=== PATIENT | female | born 1945 | race Caucasian/White ===

== ENCOUNTER 2022-03-03 15:06 | Outpatient (CLI) | payer MEDICARE, OTHER, SELFPAY ==
[2022-03-03 21:31] LABS: Albumin* 4.6 g/dL (3.3-5.0)
[2022-03-03 21:34] LABS: Alanine Aminotransferase* 49 U/L (4-35); Alkaline Phosphatase* 114 U/L (40-150); Aspartate Amino Transferase* 45 U/L (12-35); Bilirubin Direct* 0.2 mg/dL (0.0-0.5); Bilirubin Total* 0.3 mg/dL (0.1-1.5); Lipase* 215 U/L (23-300); Total Protein* 7.4 g/dL (6.0-8.3)
== END 2022-03-03 15:07 | disposition home or self-care (01) ==
PROVIDERS: PCP Physician Assistant Medical; Visit Provider Physician Assistant Medical
DX: E03.9 Hypothyroidism, unspecified (principal); R74.8 Abnormal levels of other serum enzymes; R53.83 Other fatigue; E11.9 Type 2 diabetes mellitus without complications
CPT/HCPCS: 80076; 83690; 84443

== ENCOUNTER 2022-04-01 08:39 | Outpatient (CLI) | payer MEDICARE, OTHER, SELFPAY ==
[2022-04-01 14:04] LABS: Cholesterol* 163 mg/dL (90-199); Triglycerides* 183 mg/dL (40-149)
[2022-04-01 14:05] LABS: HDL Cholesterol* 45 mg/dL (>=50); LDL Cholesterol Calculated 81 mg/dL (<100)
[2022-04-01 14:20] LABS: Iron* 82 ug/dL (37-170)
[2022-04-01 14:24] LABS: HIV 1/2/P24 Combo Screen* Negative (Negative)
[2022-04-01 14:30] LABS: Percent Iron Saturation 25 % (20-50); Total Iron Binding Capacity 332 ug/dL (265-497)
[2022-04-01 14:34] LABS: Hepatitis C Virus Antibody* Negative (Negative)
== END 2022-04-01 08:40 | disposition home or self-care (01) ==
PROVIDERS: PCP Physician Assistant Medical; Visit Provider Physician Assistant Medical
DX: Z00.00 Encounter for general adult medical examination without abnormal findings (principal); R53.83 Other fatigue; E03.9 Hypothyroidism, unspecified; E66.9 Obesity, unspecified; E78.5 Hyperlipidemia, unspecified
CPT/HCPCS: 80061; 82310; 83540; 83550; 83970; 86703; 86803

== ENCOUNTER 2022-04-22 12:49 | Outpatient (CLI) | payer MEDICARE, OTHER, SELFPAY ==
--- NOTE | 2022-04-22 13:00 | CRLHL7_ITS ---
For Patients: As a result of the Cures Act, medical imaging exams and procedure reports are released immediately into your electronic medical record. You may view this report before your referring provider. If you have questions, please contact your health care provider. INDICATION: EVAL FOR THYROID NODULE OR PARATHYROID ADENOMA COMPARISON: none TECHNIQUE: Montes scale and color Doppler images were acquired of the thyroid gland. FINDINGS: The thyroid gland demonstrates heterogeneous echogenicity and has a smooth outer contour. The right lobe measures 3.5 x 0.9 x 1.3 cm and the left lobe measures 4.0 x 1.0 x 0.9 cm in size. Solid circumscribed hypoechoic nodule upper pole left thyroid lobe measures 8 x 4 x 7 millimeters. As this is less than 1 cm, this does not require follow-up. The color Doppler images demonstrate normal vascularity. There is no evidence of cervical lymphadenopathy or parathyroid mass. IMPRESSION: No suspicious findings. Dictated by Vick Gaspar MD @ 04/22/2022 2:29:45 PM (Electronically Signed)
--- NOTE | 2022-04-22 14:00 | CRLHL7_ITS ---
For Patients: As a result of the Century Cures Act, medical imaging exams and procedure reports are released immediately into your electronic medical record. You may view this report before your referring provider. If you have questions, please contact your health care provider. DXA BONE MINERAL DENSITY STUDY Current height (in): 63. Weight (lb): 205. Menopause age: 49. Ethnicity: White. 1. Have you had a previous hip or vertebral fracture? No. 2. Have you had any fractures during your adult life which did not result from significant trauma (e.g., auto accident)? Yes. 3. Did either of your parents have a hip fracture? No. 4. Do you smoke? No. 5. Have you ever taken Glucocorticoids? No. 6. Do you have rheumatoid arthritis? No. 7. Do you have secondary osteoporosis? No. 8. Do you drink 3 or more alcoholic drinks per day? No. 9. Are you being treated for osteoporosis? No. 10. Have you ever taken any of the following medications: Actonel, Evista, Fosamax, Miacalcin, Reclast, Boniva, Forteo, HRT (i.e. estrogen/hormone therapy), Protelos, Prolia, Vitamin D, Calcium, other ??? please specify. ANSWER: Yes, vitamin D, calcium. 11. Do you have any of the following medical conditions: Anorexia or bulimia, asthma or emphysema, end stage renal disease, hyperparathyroidism, any seizure disorders, cancer, inflammatory bowel diseases, hysterectomy, other ??? please specify. ANSWER: Yes, hysterectomy. 12. What was your maximum height (inches)? 62. 13. Do you perform weight bearing exercise regularly? Yes. 14. Do you regularly consume dairy products? Yes. . 15. Do you drink caffeinated beverages? Yes. 16. At what age did your period start? 14. 17. Are you premenopausal? No. 18. How many full term pregnancies have you had? 4. 19. Have you ever missed your period for more than 6 months in a row (not including or menopause)? No. TECHNIQUE: Bone mineral density study was performed using the [employer]. FINDINGS: The results of the study expressed as bone mineral density (BMD) are as follows: Lumbar spine L1 to L4: BMD: 0.829 g/cm2. T-score: -2.0. Z-score: 0.5. Neck Left: BMD: 0.617 g/cm2. T-score: -2.1. Z-score: 0.0. Right: BMD: 0.539 g/cm2. T-score: -2.8. Z-score: -0.7. Total Left: BMD: 0.724 g/cm2. T-score: -1.8. Z-score: 0.0. Right: BMD: 0.654 g/cm2. T-score: -2.4. Z-score: -0.5. IMPRESSION: Osteoporosis. *Comparison exams done prior to 01/2020 were performed on different unit, [employer]. COMPARISON: Compared with scan of 04/03/2020, the bone mineral density has increased by 4.1 percent at the spine and increased by 2.9 percent at the hip. Vick Gaspar M.D. Diagnostic Radiologist [email or web address] JOSE/Dictated by: Vick Gaspar MD @ 04/22/2022 3:38:00 PM (Electronically Signed)
== END 2022-04-22 12:50 | disposition home or self-care (01) ==
PROVIDERS: PCP Physician Assistant Medical; Visit Provider Physician Assistant Medical
DX: E34.9 Endocrine disorder, unspecified (principal); E03.9 Hypothyroidism, unspecified; M81.0 Age-related osteoporosis without current pathological fracture
CPT/HCPCS: 76536; 77080

== ENCOUNTER 2022-05-11 16:15 | Outpatient (RCR) | payer MEDICARE, OTHER, SELFPAY ==
--- NOTE | 2022-04-15 08:38 | PT.OPE ---
PT [place] [facility] Eval [facility] Outpatient Eval Start: 04/14/22 10:13 Freq: Status: Active Protocol: Document 04/14/22 10:21 [facility] [place] (Rec: 04/14/22 10:28 [facility] [place] [id number]) E-signed By Chrissy Bernard PT Physical Therapy Outpatient Evaluation Insurance Information Recert Due Date 07/08/22 Insurance Name Other; See Comments Insurance Information/Comments Medicare advantage blue cross Medical Diagnosis [id number] unspecified fall Treating Diagnosis R26.89 abnormal gait R26.9 unsteadiness of gait, fall M25.521 R elbow pain Referring MD Ariadna Case PA-C Subjective Subjective had a fall 03/16/22 was at [facility] w 6 yo grandson, walking up incline already a little off balance then leaned forward to hear what he said and I just kept falling forward. able to miss him, landed on R forearm (hx R TSA) and R knee. went to urgent care said not broken, but I can't straighten my elbow and it does hurt some but cant use it for reaching, lifting, carrying or even working with my sewing projects. Have had both knees replaced and this winter had R thumb fused due to arthritis. Dont' feel like it was dizziness that made me fall just my center of gravity got too far forward. But I do still have that off balance unsteady feeling hasnt turned into full vertigo. Havent been working out w transportation associate this month bx wanted to heal from the fall and couldnt do the lifting and carrying that is a lot of our work. have stairs to [facility] sewing room ([facility]) w rails both sides can reach simultaneous. Am so afraid of falling fidencio since live alone and am worried about my balance. Pain Comments mod through R gluteal/ piriformis into lowback and down into hip Current Work Status Retired Preferred Name Latanya Precautions Treatment Precautions/Contraindications hypothyroidism, R shoulder TSA , R thumb fusion, B TKA, fibromyalgia, sleep apnea, HTN , OA, allergies - double vision, chronic ( surgery to correct but still doesn't focusright per patient ), Thrombocytosis, Vertigo, Obesity, Osteopenia Therapy Limitations/Systems Review Not Limited Objective Range of Motion CROM flex WNL. ext mod loss with R deviation. rotation R= 68. L=55. SHOULDER R/L: flex 165/150, abduct B 16, ER R=75, L=55, IR B T12 behind back *ELBOW ext lacking 38 degrees, flex lacking 10 degrees trunk flex limited by balance from standing. hip ER 20 degrees. Knee flex/ ext WNL L ankle DF to neutral R hip extension lacking in gait not formally tested. Strength 1 rep MMT strong - 5/5 except adduction of hips seated = 4/5 w tender at knees. step down does have increased valgus and adduction and pronation R. UE not assessed this date. endurance not great, increased fatigue after 6 min walk seated rest for recovery. Palpation tenederness bennie R knee. other areas not assessed this date though typically widespread tenderness w hx dx of fibromyalgia (takes cymbalta) Balance & Gait moderate to marked path deviation without gait aid, trendelenberg with R swing phase, R stance phase demo R pronation even in supported shoe w orthotic no shuffling noted. forward gaze, turning head results in reach for balance. able to adjust speed but never 'fast'. No evidence of festination nor shuffling though does catch toes of R LE x 3 in trial. Stairs w reciprocal gait - trendelenberg with L stance on ascent. tandem stance L forward 25 sec EO, R 9 sec, LOB with eyes closed SLS R= 2 .5 sec, L = 2 sec ( goal of 25 sec) NBOS with head turn LOB posterior Posture standing mild scoliosis with increased anterior pelvic tilt . R genu valgus of 18 degrees, R foot pronation, B flat foot requiring orthotics which she wears consistently. trendelenberg with gait when fatigued, also noted in step downs. Functional Test Performed & Score 5x sit/stand = 12 sec 6 min walk test 1000' (305 m) (recommended for her age 471m) with shortness of breath poss due to mask and allergens Tinetti 20 mod fall risk. Assessment Assessment/Impression Patient is a very pleasant 76 y.o. female well known to this therapist through prior episodes of care. [place] - states she was walking up an incline and already a little off balance when she tried to lean forward to hear what the 6 y.o. was saying. She did fall forward onto R forearm and knee. Went to [facility], had xray and nothing broken but deep bone bruise. She did have help getting back up. She has long hx of recurrent vertigo, fibromyalgia, and OA with R TSA, B TKA, R thumb fusion, B flat feet (orthotics), fibromyalgia and chronic fatigue. . She lives alone in [facility] with basement level to her sewing room ([employer] ) with kids in area. She does also watch her grandkids and likes to attend their activities including outdoor sports venues at times involving uneven ground, hills , loose gravel and other obstacles. She works out weekly with a transportation associate at the gym and was up to deadlifting 50# and press 35# UE. She has been unable to participate in workouts due to ongoing R elbow pain and inability to fully extend it ( she feels she must use her UE for the workout exercises), so have also requested addition of R elbow to this plan of care, order sent to primary for signature if she agrees. Patient presents with gait deviation, multifactoral potentially causative factors (including functional weakness and endurance, comorbidities, pain, vestibular dysfunction and gait impairments) for falling and would benefit from skilled physical therapy to address these limitations and improve gait, balance and overall safety to resume prior level of activity and ability to live independently in own home. Primary Functional Limitations balance, fall ~ 1 month ago, unsteady, R hip/LB pain altering gait, stair imbalance , decreased activity tolerance Plan of Care Rehabilitation Potential Excellent Physical Therapy Goals very motivated and dedicated to remaining independent safely STG meet 2-3 weeks 1) Pt demo I HEP and self care/home mgmt techniques for balance/falls adaptation, safety measures, and home safety improvements including picking up throw rugs, night light or commode, and use of gait aid as appropriate. 2) Pt report no falls in 6 week period. 3) Patient to demonstrate ability to ambulate safely on uneven ground with no or least restrictive gait aid. LTG meet 4-8 weeks 1)Pt demo ability ascend/ descend stairs carrying basket with use of 1 rail x 13 steps no evidence of imbalance for access to basement living level with no evidence of imbalance. 2) Pt demo ability to pass balance testing (SLS, DGI, Fukuda etc) out of high fall risk. 3) Pt demo appropriate gait pattern 500' with no evidence of lack of balance with perturbations internal and external for shopping, community ambulation with least restrictive or no gait aid. 4) Patient to demo ability to safely and confidently negotiate curb with no or least restrictive gait aid. 5) Pt will demo ability to return to walking, yoga and functional strengthening for management of RA, HTN and osteopenia to maximize independence and longevity. Coordination/Communication With Referral Source Treatment Plan/Direct Interventions Electrical Stimulation,Gait Training,Iontophoresis,Joint Mobilization,Manual Therapy, Neuromuscular Re-ed,Self-Care/ Home Management,Therapeutic Activities,Therapeutic Exercises,Ultrasound Frequency/Duration 1x/ week x 12 weeks Patient Will Be Discharged From Therapy Completion of LTG(s),Skills Plateau,Independent w/HEP, Independently Progressing Evaluation Billing Untimed Code Treatment Minutes 40 Complexity Moderate Certification Information Initial Certification Date 04/14/22 Ending Certification Date 07/08/22 Provider Signature Shows Agreement With POC & Medical Necessity Physician Comment/Change Comment or Changes Physician NPI Number #
== END 2022-08-18 13:23 | disposition home or self-care (01) ==
PROVIDERS: PCP Physician Assistant Medical; Visit Provider Physician Assistant Medical
DX: R26.89 Other abnormalities of gait and mobility (principal); Z51.89 Encounter for other specified aftercare
CPT/HCPCS: 97110; 97112; 97140; 97162

== ENCOUNTER 2022-05-17 22:04 | Outpatient (CLI) | payer MEDICARE, OTHER, SELFPAY ==
[2022-05-17 22:45] LABS: TSH With Reflex to FT4* 0.833 uIU/mL (0.270-4.200)
== END 2022-05-17 22:05 | disposition home or self-care (01) ==
PROVIDERS: PCP Physician Assistant Medical; Visit Provider Physician Assistant Medical
DX: E03.9 Hypothyroidism, unspecified (principal)
CPT/HCPCS: 84443

== ENCOUNTER 2022-07-22 13:43 | Outpatient (CLI) | payer MEDICARE, OTHER, SELFPAY ==
[2022-07-22 22:29] LABS: Albumin* 4.7 g/dL (3.3-5.0)
[2022-07-22 22:30] LABS: Chloride* 102 mmol/L (96-114); Potassium* 4.3 mmol/L (3.6-5.1); Sodium* 140 mmol/L (135-149)
[2022-07-22 22:32] LABS: Alkaline Phosphatase* 95 U/L (40-150); Aspartate Amino Transferase* 44 U/L (12-35); Bilirubin Total* 0.5 mg/dL (0.1-1.5); Blood Urea Nitrogen* 17 mg/dL (7-30); Carbon Dioxide* 26 mmol/L (20-32); Estimated Glomerular Filt Rate 59 ml/min; Total Protein* 7.6 g/dL (6.0-8.3)
[2022-07-22 22:33] LABS: Alanine Aminotransferase* 41 U/L (4-35); Calcium* 10.3 mg/dL (8.4-10.6); Glucose* 98 mg/dL (60-115)
[2022-07-25 22:26] LABS: Vitamin D, 1,25-Dihydroxy 43.3 pg/mL (19.9-79.3)
== END 2022-07-22 13:44 | disposition home or self-care (01) ==
PROVIDERS: PCP Physician Assistant Medical; Visit Provider Physician Assistant Medical
DX: E34.9 Endocrine disorder, unspecified (principal); R53.83 Other fatigue; R74.8 Abnormal levels of other serum enzymes; E11.9 Type 2 diabetes mellitus without complications; E03.9 Hypothyroidism, unspecified; I10 Essential (primary) hypertension; E78.5 Hyperlipidemia, unspecified; D50.9 Iron deficiency anemia, unspecified; E66.9 Obesity, unspecified; D75.839 Thrombocytosis, unspecified; R73.09 Other abnormal glucose
CPT/HCPCS: 80053; 82310; 82652; 83970; 84443; 87086; 87186

== ENCOUNTER 2022-08-11 15:10 | Outpatient (CLI) | payer MEDICARE, OTHER, SELFPAY | END 2022-08-11 15:11 | disposition home or self-care (01) | PROVIDERS: PCP Physician Assistant Medical; Visit Provider Physician Assistant Medical | DX: N39.0 Urinary tract infection, site not specified (principal) | CPT/HCPCS: 87086; 87186 ==

== ENCOUNTER 2022-09-08 09:44 | Outpatient (CLI) | payer MEDICARE, OTHER, SELFPAY | END 2022-09-08 09:45 | disposition home or self-care (01) | LOC: LKVREF 09-10 09:08 | PROVIDERS: PCP Physician Assistant Medical; Visit Provider Physician Assistant Medical | DX: R35.0 Frequency of micturition (principal); L98.9 Disorder of the skin and subcutaneous tissue, unspecified | CPT/HCPCS: 87086; 87186 ==

== ENCOUNTER 2022-11-03 13:46 | Outpatient (CLI) | payer MEDICARE, OTHER, SELFPAY | END 2022-11-03 13:47 | disposition home or self-care (01) | LOC: NFLDREF 13:46 | PROVIDERS: PCP Physician Assistant Medical; Visit Provider Obstetrics & Gynecology | DX: R35.0 Frequency of micturition (principal) | CPT/HCPCS: 87086; 87186 ==

== ENCOUNTER 2022-12-01 10:51 | Outpatient (CLI) | payer MEDICARE, OTHER, SELFPAY | END 2022-12-01 10:52 | disposition home or self-care (01) | LOC: LKVREF 10:52 | PROVIDERS: PCP Physician Assistant Medical; Visit Provider Physician Assistant Medical | DX: N39.0 Urinary tract infection, site not specified (principal); N81.6 Rectocele; R33.9 Retention of urine, unspecified; R53.83 Other fatigue | CPT/HCPCS: 80053; 87086; 87186 ==

== ENCOUNTER 2022-12-14 13:29 | Outpatient (CLI) | payer MEDICARE, OTHER, SELFPAY | END 2022-12-14 13:30 | disposition home or self-care (01) | LOC: NFLDREF 12-16 06:20 | PROVIDERS: PCP Physician Assistant Medical; Referring Provider Physician Assistant Medical; Visit Provider Obstetrics & Gynecology | DX: N39.0 Urinary tract infection, site not specified (principal) | CPT/HCPCS: 87086 ==

== ENCOUNTER 2023-04-06 08:42 | Outpatient (CLI) | payer MEDICARE, OTHER, SELFPAY | END 2023-04-06 08:43 | disposition home or self-care (01) | PROVIDERS: PCP Physician Assistant Medical; Visit Provider Physician Assistant Medical | DX: Z00.00 Encounter for general adult medical examination without abnormal findings (principal); R53.83 Other fatigue; E03.9 Hypothyroidism, unspecified; I10 Essential (primary) hypertension; E78.5 Hyperlipidemia, unspecified; E66.9 Obesity, unspecified; R74.8 Abnormal levels of other serum enzymes; E11.9 Type 2 diabetes mellitus without complications; D50.9 Iron deficiency anemia, unspecified; E34.9 Endocrine disorder, unspecified; Z13.21 Encounter for screening for nutritional disorder; M85.80 Other specified disorders of bone density and structure, unspecified site | CPT/HCPCS: 80053; 80061; 82306; 82310; 82607; 83540; 83550; 83970; 84443 ==

== ENCOUNTER 2023-07-11 11:20 | Outpatient (REF) | payer MEDICARE, OTHER, SELFPAY | END 2023-07-11 11:21 | disposition home or self-care (01) | LOC: NFLDREF 11:20 | PROVIDERS: PCP Physician Assistant Medical; Referring Provider Physician Assistant Medical; Visit Provider Physician Assistant Medical | DX: N39.0 Urinary tract infection, site not specified (principal); M79.7 Fibromyalgia; K21.9 Gastro-esophageal reflux disease without esophagitis | CPT/HCPCS: 87086; 87186 ==

== ENCOUNTER 2023-07-27 14:31 | Outpatient (CLI) | payer MEDICARE, OTHER, SELFPAY | END 2023-07-27 14:32 | disposition home or self-care (01) | LOC: NFLDREF 07-29 14:37 | PROVIDERS: PCP Physician Assistant Medical; Referring Provider Physician Assistant Medical; Visit Provider Physician Assistant Medical | DX: N39.0 Urinary tract infection, site not specified (principal) | CPT/HCPCS: 87086 ==

== ENCOUNTER 2023-12-12 13:12 | Outpatient (CLI) | payer MEDICARE, OTHER, SELFPAY | END 2023-12-12 13:13 | disposition home or self-care (01) | PROVIDERS: PCP Physician Assistant Medical; Visit Provider Family Medicine | DX: R53.83 Other fatigue (principal); E03.9 Hypothyroidism, unspecified | CPT/HCPCS: 80048; 84443 ==

== ENCOUNTER 2024-03-26 09:50 | Outpatient (CLI) | payer MEDICARE, OTHER, SELFPAY | END 2024-03-26 09:51 | disposition home or self-care (01) | PROVIDERS: PCP Physician Assistant Medical; Visit Provider Physician Assistant Medical | DX: E03.9 Hypothyroidism, unspecified (principal); I10 Essential (primary) hypertension; E78.5 Hyperlipidemia, unspecified; M19.90 Unspecified osteoarthritis, unspecified site; E11.9 Type 2 diabetes mellitus without complications; Z79.84 Long term (current) use of oral hypoglycemic drugs; Z11.59 Encounter for screening for other viral diseases; Z11.4 Encounter for screening for human immunodeficiency virus [HIV] | CPT/HCPCS: 80053; 80061; 82306; 82550; 83970; 84439; 84481; 86140; 86703; 86803 ==

== ENCOUNTER 2024-04-12 13:36 | Outpatient (CLI) | payer MEDICARE, OTHER, SELFPAY ==
--- NOTE | 2024-04-12 13:30 | CRLHL7_ITS ---
For Patients: As a result of the Century Cures Act, medical imaging exams and procedure reports are released immediately into your electronic medical record. You may view this report before your referring provider. If you have questions, please contact your health care provider. DXA BONE MINERAL DENSITY STUDY Reason for exam: Breast cancer. Screening. Current height (in): 63. Weight (lb): 205. Menopause age: 52. Ethnicity: White. 1. Have you had a previous hip or vertebral fracture? No. 2. Have you had any fractures during your adult life which did not result from significant trauma (e.g., auto accident)? Yes. 3. Did either of your parents have a hip fracture? No. 4. Do you smoke? No. 5. Have you ever taken Glucocorticoids? No. 6. Do you have rheumatoid arthritis? No. 7. Do you have secondary osteoporosis? No. 8. Do you drink 3 or more alcoholic drinks per day? No. 9. Are you being treated for osteoporosis? No. 10. Have you ever taken any of the following medications: Actonel, Evista, Fosamax, Miacalcin, Reclast, Boniva, Forteo, HRT (i.e., estrogen/hormone therapy), Protelos, Prolia, Vitamin D, Calcium, other ??? please specify. ANSWER: Yes, Vitamin D and calcium. 11. Do you have any of the following medical conditions: Anorexia or bulimia, asthma or emphysema, end stage renal disease, hyperparathyroidism, any seizure disorders, cancer, inflammatory bowel diseases, hysterectomy, other ??? please specify. ANSWER: Yes, hysterectomy. 12. What was your maximum height (inches)? 63. 13. Do you perform weight bearing exercise regularly? Yes. 14. Do you regularly consume dairy products? Yes. 15. Do you drink caffeinated beverages? Yes. 16. At what age did your period start? 14. 17. Are you premenopausal? No. 18. How many full-term pregnancies have you had? 4. 19. Have you ever missed your period for more than 6 months in a row (not including or menopause)? No. TECHNIQUE: Bone mineral density study was performed using the [employer]. FINDINGS: The results of the study expressed as bone mineral density (BMD) are as follows: Lumbar spine L1 to L4: BMD: 0.862 g/cm2. T-score: -1.7. Z-score: 0.9 Neck Left: BMD: 0.608 g/cm2. T-score: -2.2. Z-score: 0.0 Right: BMD: 0.560 g/cm2. T-score: -2.6. Z-score: -0.4 Total Left: BMD: 0.765 g/cm2. T-score: -1.5. Z-score: 0.5 Right: BMD: 0.697 g/cm2. T-score: -2.0. Z-score: -0.1 IMPRESSION: Osteoporosis. *Comparison exams done prior to 01/2020 were performed on different unit, [employer]. COMPARISON: Compared with scan of 04/22/2022, the bone mineral density has increased by 3.9 percent at the spine and increased by 6.1 percent at the hip. Compared with scan of 04/03/2020, the bone mineral density has increased by 4.1 percent at the spine and increased by 2.9 percent at the hip. Vick Gaspar M.D. Diagnostic Radiologist [email or web address] seals/Dictated by: Vick Gaspar MD @ 04/13/2024 1:16:00 PM (Electronically Signed)
== END 2024-04-12 13:37 | disposition home or self-care (01) ==
LOC: RAD 13:36
PROVIDERS: PCP Physician Assistant Medical; Visit Provider Physician Assistant Medical
DX: Z13.820 Encounter for screening for osteoporosis (principal); M81.0 Age-related osteoporosis without current pathological fracture; Z78.0 Asymptomatic menopausal state
CPT/HCPCS: 77080; 82607

== ENCOUNTER 2024-04-23 07:35 | Outpatient (CLI) | payer MEDICARE, OTHER, SELFPAY ==
--- NOTE | 2024-04-23 08:00 | CRLHL7_ITS ---
For Patients: As a result of the Century Cures Act, medical imaging exams and procedure reports are released immediately into your electronic medical record. You may view this report before your referring provider. If you have questions, please contact your health care provider. INDICATIONS: Follow-up lung nodule. TECHNIQUE: CT chest without contrast. COMPARISON: Chest radiograph 04/12/2024. FINDINGS: No pleural or pericardial effusions. No pathologic lymphadenopathy. Aortic atherosclerosis. Ascending thoracic aorta is dilated to 3.9 cm. Main pulmonary artery is normal in caliber. Coronary artery calcifications. Heart size is within normal limits. Small hiatal hernia. Soft tissues of the thoracic wall are unremarkable. No pneumothorax. Central airways are patent. Multifocal bilateral ill-defined ground-glass opacities involve all lobes. Small solid-appearing nodules measuring 3-5 mm in the periphery of the left lower lobe on images 72-78 of series 2. Visualized unenhanced upper abdomen is unremarkable. Mild degenerative changes of the spine. Moderate to advanced left glenohumeral degenerative changes. Right shoulder arthroplasty. No acute or suspicious osseous abnormality. IMPRESSION: 1. Multifocal bilateral ill-defined ground-glass opacities are likely infectious or inflammatory, to include atypical infectious etiologies. Follow-up chest CT in 1-3 months recommended for further evaluation. 2. Subcentimeter left lower lobe nodules measuring up to 5 mm. Attention to these on follow-up imaging recommended as well. Dictated by Sagar Beltrán MD @ 04/23/2024 8:13:28 AM Please note that all CT scans at this facility use dose modulation, iterative reconstruction, and/or weight-based dosing when appropriate to reduce radiation dose to as low as reasonably achievable. Dictated by: Sagar Beltrán MD @ 04/23/2024 08:13:55 (Electronically Signed)
== END 2024-04-23 07:36 | disposition home or self-care (01) ==
LOC: CT 07:36
PROVIDERS: PCP Physician Assistant Medical; Visit Provider Physician Assistant Medical
DX: R91.1 Solitary pulmonary nodule (principal)
CPT/HCPCS: 71250

== ENCOUNTER 2024-05-07 12:41 | Outpatient (CLI) | payer MEDICARE, OTHER, SELFPAY | END 2024-05-07 12:42 | disposition home or self-care (01) | LOC: NFLDREF 05-12 10:58 | PROVIDERS: PCP Physician Assistant Medical; Referring Provider Physician Assistant Medical; Visit Provider Physician Assistant Medical | DX: R10.2 Pelvic and perineal pain (principal) | CPT/HCPCS: 87086 ==

== ENCOUNTER 2024-05-21 08:46 | Outpatient (CLI) | payer MEDICARE, OTHER, SELFPAY ==
--- NOTE | 2024-05-21 09:00 | CRLHL7_ITS ---
For Patients: As a result of the Century Cures Act, medical imaging exams and procedure reports are released immediately into your electronic medical record. You may view this report before your referring provider. If you have questions, please contact your health care provider. INDICATION: Follow-up pulmonary nodule TECHNIQUE: CT chest without contrast. COMPARISON: 04/23/[address] FINDINGS: Lungs and pleura: Near-complete resolution of previously seen bilateral ground-glass opacities. Small amount of peripheral ground-glass remains mainly in the left lower lobe. Lungs have a mosaic attenuation pattern which can be seen with air trapping and sometimes altered pulmonary perfusion. Cluster of nodules measuring up to 4 mm lateral left lower lobe, not significantly changed. 4 mm subpleural right middle lobe nodule on image 57 also unchanged. A 1 cm left upper lobe perihilar nodule on image 35 of is stable. Heart and vasculature: Ascending aorta measures 4.0 cm similar. Coronary artery calcifications. Lymph nodes/mediastinum: No mediastinal, hilar, or axillary adenopathy. Chest wall: No masses. Upper abdomen: Normal. Bones: Right shoulder arthroplasty. Advanced left glenohumeral osteoarthritis. IMPRESSION: 1. Near-complete resolution of previously seen ground-glass opacities. These are probably infectious/inflammatory. 2. 1 cm perihilar left upper lobe pulmonary nodule. Please see follow-up guidelines below. 3. Smaller nodules measuring up to 4 mm. FLEISCHNER SOCIETY GUIDELINES - SOLID NODULES: SINGLE LOW RISK - nodule less than 6 mm: No routine follow-up. - nodule 6-8 mm: CT at 6-12 months, then consider CT at 18-24 months. - nodule greater than 8 mm: Consider CT at 3 months, PET/CT or tissue sampling. SINGLE HIGH RISK - nodule less than 6 mm: Optional CT at 12 months. - nodule 6-8 mm: CT at 6-12 months, then CT at 18-24 months. - nodule greater than 8 mm: Consider CT at 3 months, PET/CT or tissue sampling. MULTIPLE LOW RISK - nodule less than 6 mm: No routine follow-up. - nodule 6-8 mm: CT at 3-6 months, then consider CT at 18-24 months. - nodule greater than 8 mm: CT at 3-6 months, then consider CT at 18-24 months. MULTIPLE HIGH RISK - nodule less than 6 mm: Optional CT at 12 months. - nodule 6-8 mm: CT at 3-6 months, then at 18-24 months. - nodule greater than 8 mm: CT at 3-6 months, then at 18-24 months. Please note that all CT scans at this facility use dose modulation, iterative reconstruction, and/or weight-based dosing when appropriate to reduce radiation dose to as low as reasonably achievable. Dictated by Raj Mims MD @ 05/22/2024 10:23:22 AM (Electronically Signed)
== END 2024-05-21 08:47 | disposition home or self-care (01) ==
LOC: CT 08:46
PROVIDERS: PCP Physician Assistant Medical; Visit Provider Physician Assistant Medical
DX: R91.1 Solitary pulmonary nodule (principal)
CPT/HCPCS: 71250

== ENCOUNTER 2024-08-23 10:49 | Outpatient (CLI) | payer MEDICARE, OTHER, SELFPAY ==
--- NOTE | 2024-08-23 11:00 | CRLHL7_ITS ---
For Patients: As a result of the 21st Century Cures Act, medical imaging exams and procedure reports are released immediately into your electronic medical record. You may view this report before your referring provider. If you have questions, please contact your health care provider. INDICATION: Pulmonary nodule. Follow up. TECHNIQUE: Volumetric helical scanning of the thorax was performed without IV contrast material. Coronal and sagittal reconstructions were obtained. COMPARISON: Chest CT scans of 05/21/2024 and 04/23/2024 FINDINGS: A noncalcified 10 mm left upper lobe perihilar nodule is again demonstrated on image 38 of series 3 and is unchanged. Unchanged, noncalcified 4 mm nodules are demonstrated in the right middle lobe on image 57 and in the left lower lobe on image 70. Increased patchy ground-glass infiltrates are demonstrated in both lower lobes and in the posterolateral right middle lobe. There is no significant airway abnormality. No pleural effusion is demonstrated. There is no mediastinal or hilar lymphadenopathy. The heart size is normal. Calcified coronary arterial plaque is again demonstrated. Images of the upper abdomen are unremarkable. IMPRESSION: 1. Noncalcified 10 mm left upper lobe nodule, stable for 4 months. Follow up in accordance with Fleischner Society Guidelines (see below) is recommended. 2. Increased patchy ground-glass infiltrates in both lower lobes and in the posterolateral right middle lobe. FLEISCHNER SOCIETY GUIDELINES: LOW RISK: - nodule less than 6 mm: No follow-up needed. - nodule 6-8 mm: Initial follow-up CT at 6-12 months and then at 18-24 months if no change. - nodule greater than 8 mm: Follow-up CTs at around 3, 9, and 24 months. Dynamic contrast-enhanced CT, PET, and/or biopsy. MULTIPLE LOW RISK: - nodule less than 6 mm: No follow-up needed. - nodule 6-8 mm: CT at 3-6 months, then consider CT at 18-24 months. - nodule greater than 8 mm: CT at 3-6 months, then consider CT at 18-24 months. HIGH RISK: - nodule less than 6 mm: Follow-up at 12 months. If no change, no further imaging needed. - nodule 6-8 mm: Initial follow-up CT at 3-6 months and then at 9-12 and 24 months if no change. - nodule greater than 8 mm: Follow-up CTs at around 3, 9, and 24 months. Dynamic contrast-enhanced CT, PET, and/or biopsy. MULTIPLE HIGH RISK: - nodule less than 6 mm: Optional CT at 12 months. - nodule 6-8 mm: CT at 3-6 months, then at 18-24 months. - nodule greater than 8 mm: CT at 3-6 months, then at 18-24 months. HIGH RISK is defined as one or more of the following: - at least 20 pack-year smoking history or equivalent second-hand exposure. - personal history of cancer or family history of lung cancer. - occupational exposure (asbestos, beryllium, silica, uranium, radon) - chronic interstitial/fibrotic lung disease. Please note that all CT scans at this facility use dose modulation, iterative reconstruction, and/or weight-based dosing when appropriate to reduce radiation dose to as low as reasonably achievable. Dictated by Augustus Qureshi MD @ 08/24/2024 1:18:43 PM (Electronically Signed)
== END 2024-08-23 10:50 | disposition home or self-care (01) ==
PROVIDERS: PCP Physician Assistant Medical; Visit Provider Physician Assistant Medical
DX: R91.1 Solitary pulmonary nodule (principal)
CPT/HCPCS: 71250